=== PATIENT | female | born 1935 | race Caucasian/White ===

== ENCOUNTER 2019-09-29 09:12 | Outpatient (CLI) | payer MEDICARE ==
--- NOTE | 2019-09-29 11:26 | BD ---
DEXA BONE MINERAL DENSITY STUDY: HISTORY: Osteoporosis screening. COMPARISON: None. FINDINGS: LUMBAR SPINE BMD (g/cm2) T-SCORE L1 0.755 -2.1 L2 0.873 -1.4 L3 0.846 -2.2 L4 0.788 -2.5 TOTAL 0.815 -2.1 BMD (g/cm2) T-SCORE FEMORAL NECK 0.599 -2.2 TOTAL LEFT HIP 0.718 -1.8 WHO CLASSIFICATION: Osteopenia. TEN YEAR FRACTURE RISK: Major osteoporotic fracture 14% and hip fracture 5%. IMPRESSION: Osteopenia with fracture risk as above. POS: CET
--- NOTE | 2019-10-25 15:03 | MMO ---
Bilateral MAMMO Bilat Screen [facility]. CLINICAL HISTORY: Patient is 84 years old and is seen for screening. VIEWS: The views performed were: bilateral craniocaudal with tomosynthesis and bilateral mediolateral oblique with tomosynthesis. FILMS COMPARED: The present examination has been compared to prior imaging studies performed at [facility] on 06/06/2015, 07/08/2017 and 07/29/2017. This study has been interpreted with the assistance of computer-aided detection. MAMMOGRAM FINDINGS: There are scattered fibroglandular densities. There are no suspicious masses, suspicious calcifications, or new areas of architectural distortion. IMPRESSION: THERE IS NO MAMMOGRAPHIC EVIDENCE OF MALIGNANCY. A ROUTINE FOLLOW-UP MAMMOGRAM IN 1 YEAR IS RECOMMENDED. THE RESULTS OF THIS EXAM WERE SENT TO THE PATIENT. ACR BI-RADS Category 1 - Negative MAMMOGRAPHY NOTE: 1. A negative mammogram report should not delay a biopsy if a dominant of clinically suspicious mass is present. 2. Approximately 10% to 15% of breast cancers are not detected by mammography. 3. Adenosis and dense breasts may obscure an underlying neoplasm. Reported by: KENNETH VELASQUEZ MD Electonically Signed: [id number]
== END 2019-09-29 09:13 | disposition home or self-care (01) ==
LOC: BICMAMMO 09:12
PROVIDERS: ATTEND Family Medicine
DX: Z12.31 Encounter for screening mammogram for malignant neoplasm of breast (principal); M81.6 Localized osteoporosis [Lequesne]; M85.89 Other specified disorders of bone density and structure, multiple sites
CPT/HCPCS: 77063; 77067; 77080

== ENCOUNTER 2019-10-29 12:21 | Outpatient (CLI) | payer MEDICARE ==
--- NOTE | 2019-10-29 12:41 | RAD ---
XR Chest Pa Lat STANDARD History: Bronchitis Comparison: None. Findings: Lungs are mildly hyperinflated. No pneumothorax. No effusion. No confluent airspace consoli dation. Impression: No acute intrathoracic abnormality. Findings of obstructive pulmonary disease.
== END 2019-10-29 12:22 | disposition home or self-care (01) ==
LOC: BICRAD 12:21
PROVIDERS: ATTEND Family Medicine
DX: J44.9 Chronic obstructive pulmonary disease, unspecified (principal)
CPT/HCPCS: 71046

== ENCOUNTER 2020-04-18 12:53 | Outpatient (CLI) | payer MEDICARE, BC ==
--- NOTE | 2020-04-18 13:47 | ULT ---
US Renal Bilateral STANDARD: 04/18/2020 12:00 AM CLINICAL HISTORY: Incontinence and urinary tract infections; incomplete emptying of the urinary bladd er. STUDY: Renal ultrasound COMPARISON: None. FINDINGS: Right kidney: Echogenicity: Normal. Masses/cysts: None. Hydronephrosis: None. Calcifications: None. Length: 8.6 cm Left kidney: Echogenicity: Normal. Masses/cysts: None. Hydronephrosis: None. Calcifications: None. Length: 8.8 cm Limited visualization of the urinary bladder is unremarkable. Post void bladder volume is 58 mL IMPRESSION: Unremarkable renal ultrasound
== END 2020-04-18 12:54 | disposition home or self-care (01) ==
LOC: SCSULT 12:53
PROVIDERS: ATTEND Urology
DX: N39.0 Urinary tract infection, site not specified (principal); N39.46 Mixed incontinence; R33.9 Retention of urine, unspecified
CPT/HCPCS: 76770

== ENCOUNTER 2020-07-17 13:08 | Outpatient (CLI) | payer MEDICARE ==
--- NOTE | 2020-07-17 13:29 | ULT ---
Exam: Exam: Transabdominal pelvic ultrasound HISTORY: Pelvic pain. Frequent urination. TECHNIQUE: Transabdominal imaging of the pelvis is performed. FINDINGS: Uterus is identified, measuring 1.9 x 6.2 x 3.9 cm No masses or fluid in the left or right adnexa. No free fluid in the cul-de-sac Urinary bladder is identified. Prevoid volume is 295 mL. Post void volume is 143 mL. Both ureteral je ts are identified IMPRESSION: Significant post void residual.
== END 2020-07-17 13:09 | disposition home or self-care (01) ==
LOC: BICULT 13:08
PROVIDERS: ATTEND Family Medicine
DX: R10.2 Pelvic and perineal pain (principal); R35.0 Frequency of micturition
CPT/HCPCS: 76856

== ENCOUNTER 2021-07-31 12:21 | Outpatient (CLI) | payer MEDICARE | END 2021-07-31 12:22 | disposition home or self-care (01) | LOC: BICMAMMO 12:21 | PROVIDERS: ATTEND Family Medicine | DX: Z12.31 Encounter for screening mammogram for malignant neoplasm of breast (principal) | CPT/HCPCS: 77063; 77067 ==

== ENCOUNTER 2021-09-27 12:07 | Outpatient (CLI) | payer MEDICARE | END 2021-09-27 12:08 | disposition home or self-care (01) | LOC: BICULT 12:07 | PROVIDERS: ATTEND Family Medicine | DX: R09.89 Other specified symptoms and signs involving the circulatory and respiratory systems (principal) | CPT/HCPCS: 93880 ==

== ENCOUNTER 2022-06-19 09:03 | Outpatient (CLI) | payer MEDICARE | END 2022-06-19 09:04 | disposition home or self-care (01) | LOC: BICMAMMO 09:03 | PROVIDERS: ATTEND Family Medicine | DX: M81.6 Localized osteoporosis [Lequesne] (principal); M85.851 Other specified disorders of bone density and structure, right thigh; M85.852 Other specified disorders of bone density and structure, left thigh | CPT/HCPCS: 77080 ==

== ENCOUNTER 2022-10-01 10:37 | Outpatient (CLI) | payer MEDICARE | END 2022-10-01 10:38 | disposition home or self-care (01) | LOC: BICMAMMO 10:37 | PROVIDERS: ATTEND Family Medicine | DX: Z12.31 Encounter for screening mammogram for malignant neoplasm of breast (principal) | CPT/HCPCS: 77063; 77067 ==